=== PATIENT | female | born 1990 | race Caucasian/White ===

== ENCOUNTER 2017-02-02 11:12 | Emergency (ER) | payer OTHER | END 2017-02-02 12:04 | disposition left against medical advice (07) | LOC: UCCORT 11:12 | DX: T14.8 Other injury of unspecified body region (principal); X58.XXXD Exposure to other specified factors, subsequent encounter; Y92.9 Unspecified place or not applicable; Z53.21 Procedure and treatment not carried out due to patient leaving prior to being seen by health care provider ==

== ENCOUNTER 2017-02-02 11:44 | Emergency (ER) | payer OTHER ==
[2017-02-02 14:24] VITALS: BP 107/69
--- NOTE | 2017-02-02 14:59 | UC ---
HPI Wound/Suture Re-check - HPI Summary HPI Summary: 26 female presents to have 5 sutures removed after 6 days of having them in after sustaining a laceration to the right face/forehead. Patient states it has been healing nicely. Had them placed at [facility] 6 days ago after sustaining a head injury from a fall. Denies any other complaints at this time. No signs of infection. No other complaints. No PMHx. Has been applying triple antibiotic. - History Of Current Complaint Chief Complaint: UCGeneralIllness Stated Complaint: SUTURE REMOVAL Time Seen by Provider: 02/02/17 14:20 Hx Obtained From: Patient Hx Last Menstrual Period: Mid-December 2016 Onset/Duration: Sudden Onset Surgical Site: right temporal face region, 5 sutures Severity: Mild Pain Intensity: 0 Pain Scale Used: 0-10 Numeric Procedure Type: sutures placed 6 days ago, need removed Surgery Date: 01/28/17 Head: 1 - [address] - Allergies/Home Medications Allergies/Adverse Reactions: Allergies Allergy/AdvReac Type Severity Reaction Status Date / Time ANESTHESIA Allergy Vomiting Uncoded 02/02/17 14:19 Home Medications: Home Medications NK [No Home Medications Reported] 02/02/17 [History Confirmed 02/02/17] PMH/Surg Hx/FS Hx/Imm Hx - Additional Past Medical History Additional PMH: Denies DM, HTN or asthma - Surgical History Surgical History: Yes Surgery Procedure, Year, and Place: T&A, BREAST AUGMENTATION - Family History Known Family History: Positive: None - Social History Alcohol Use: Occasionally Substance Use Type: None Smoking Status (MU): Never Smoked Tobacco - Immunization History Most Recent Influenza Vaccination: NONE 2017 Most Recent Tetanus Shot: UTD Review of Systems Constitutional: Negative Skin: Other - suture removal Eyes: Negative ENT: Negative Respiratory: Negative Cardiovascular: Negative Motor: Negative Neurovascular: Negative All Other Systems Reviewed And Are Negative: Yes Physical Exam Triage Information Reviewed: Yes Appearance: Well-Appearing, No Pain Distress, Well-Nourished Vital Signs: Initial Vital Signs Temp 98.3 F 02/02/17 14:20 Pulse 93 02/02/17 14:20 Resp 16 02/02/17 14:20 BP 107/69 02/02/17 14:20 Pulse Ox 99 02/02/17 14:20 Vital Signs Reviewed: Yes Eyes: Positive: Conjunctiva Clear ENT: Positive: Normal ENT inspection, Hearing grossly normal, Pharynx normal Neck: Positive: Supple, Nontender Respiratory: Positive: Chest non-tender, Lungs clear, Normal breath sounds, No respiratory distress, No accessory muscle use Cardiovascular: Positive: RRR, No Murmur, Pulses Normal Musculoskeletal: Positive: Strength Intact, ROM Intact Neurological: Positive: Alert Skin: Positive: Other - 5 sutures placed in right temporal region of face. Removed without complication. Wound healed nicely, well approximated, no sign of infection. Course/Dx - Course Course Of Treatment: 5 sutures removed without complication. Patient tolerated procedure well. Laceration appears to be healed nicely, well approximated. No signs of infection. No dehiscence. Aware of worsening signs and symptoms. Keep clean and dry. Apply triple antibiotic ointment. Follow up. - Differential Dx - Laceration/Wound Differential Diagnoses: Cellulitis, Dehiscence, Healing Wound, Suture Removal Provider Diagnoses: suture removal Discharge - Discharge Plan Condition: Stable Disposition: HOME Patient Education Materials: Stitches Removal (ED) Referrals: Fabián Patel MD [Primary Care Provider] - Additional Instructions: Continue to gently clean. Keep clean and dry. Continue applying triple antibiotic. Cool compresses for swelling and discomfort. Watch for worsening signs or symptoms. Follow up with PCP.
== END 2017-02-02 15:03 | disposition home or self-care (01) ==
LOC: UCCORT 11:44
DX: Z48.02 Encounter for removal of sutures (principal)
CPT/HCPCS: 99211; G0463